=== PATIENT | male | born 2000 | race Caucasian/White ===

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

== ENCOUNTER 2019-03-24 01:10 | Emergency (ER) | payer OTHER ==
[~2019-03-24] VITALS: Ht 175.2 cm; Wt 68.0 kg
[2019-03-24 01:11] VITALS: BP 106/68
[2019-03-24] MEDS ORDERED: AMOXICILLIN500 M2 PO (02:10)
== END 2019-03-24 02:17 | disposition home or self-care (01) ==
LOC: ED 01:10
DX: H66.93 Otitis media, unspecified, bilateral (principal)

== ENCOUNTER 2019-04-05 22:47 | Emergency (ER) | payer OTHER ==
[~2019-04-05] VITALS: Ht 177.8 cm; Wt 70.3 kg
[~2019-04-05 22:47] MED LIST changes: +AMOXICILLIN500 M2 PO
[2019-04-05 22:51] VITALS: BP 102/68
[2019-04-06] MEDS ORDERED: FLONASE ALLERG9.9 ML NAS (01:14)
[2019-04-06] MEDS ORDERED: ZYRTEC10 MG PO (01:14)
== END 2019-04-06 01:27 | disposition home or self-care (01) ==
LOC: ED 22:47
DX: J06.9 Acute upper respiratory infection, unspecified (principal); Z79.2 Long term (current) use of antibiotics

== ENCOUNTER 2019-11-18 21:25 | Emergency (ER) | payer OTHER ==
[~2019-11-18 21:25] MED LIST changes: +FLONASE ALLERG9.9 ML NAS; +ZYRTEC10 MG PO
[2019-11-18 21:39] VITALS: BP 111/71
[2019-11-18] MEDS ORDERED: SEPTDS PO (22:35)
[2019-11-18] MEDS ORDERED: CEPHALEXIN500 M1 PO (22:35)
== END 2019-11-18 22:45 | disposition home or self-care (01) ==
LOC: ED 21:25
DX: L05.91 Pilonidal cyst without abscess (principal)

== ENCOUNTER 2020-02-23 23:50 | Emergency (ER) | payer OTHER ==
[~2020-02-23] VITALS: Ht 177.8 cm; Wt 68.0 kg
[~2020-02-23 23:50] MED LIST changes: +CEPHALEXIN500 M1 PO; +SEPTDS PO
[2020-02-24 00:19] LABS: BASO % 0.4 % (0.0-1.0); EOS # 0.1 10*3/uL (0.0-0.4); EOS % 0.9 % (1.0-4.0); LYMPH # 2.2 10*3/uL (1.3-4.4); LYMPH % 28.6 % (27.0-41.0); MEAN CORPUSCULAR HGB 28.6 pg (27.0-31.0); MEAN CORPUSCULAR HGB CONC 34.4 g/dl (33.0-37.0); MEAN PLATELET VOLUME 9.9 fl (9.6-12.3); MONO # 0.6 10*3/uL (0.1-1.0); MONO % 7.4 % (3.0-9.0); NEUT # 4.9 10*3/uL (2.3-7.9); NEUT % 62.4 % (47.0-73.0); PLATELET COUNT AUTOMATED 250 10*3/uL (130-400); RED BLOOD COUNT 5.18 10*6/uL (4.50-5.90); RED CELL DISTRI WIDTH 12.5 % (0-14.5); WHITE BLOOD COUNT 7.8 10*3/uL (4.8-10.8)
[2020-02-24 00:35] LABS: ALBUMIN 4.4 gm/dl (3.1-4.5); ALKALINE PHOSPHATASE 61 U/L (45-117); BUN 12 mg/dl (7-24); CHLORIDE 111 mmol/L (98-107); CREATININE 1.31 mg/dL (0.70-1.30); POTASSIUM 2.9 mmol/L (3.5-5.1); SGOT/AST 15 IU/L (3-35); SGPT/ALT 24 U/L (12-78); SODIUM 141 mmol/L (136-145)
[2020-02-24 00:37] LABS: TROPONIN I < 0.015 ng/ml (<0.045)
[2020-02-24] MEDS ORDERED: POTASSIUM CHLO10 ME5 PO (00:57)
[2020-02-24 01:05] VITALS: BP 117/84
== END 2020-02-24 01:29 | disposition home or self-care (01) ==
LOC: ED 23:50
PROVIDERS: Emergency Medicine
DX: F45.8 Other somatoform disorders (principal); E87.6 Hypokalemia; Z79.899 Other long term (current) drug therapy

== ENCOUNTER 2020-08-01 11:53 | Emergency (ER) | payer OTHER ==
[~2020-08-01] VITALS: Wt 79.4 kg
[~2020-08-01 11:53] MED LIST changes: -OMEPRAZOLE40 MG PO; -ZITHROMAX250 MG PO
[2020-08-01 12:04] VITALS: BP 142/78
[2020-08-01] MEDS ORDERED: ZITHROMAX250 MG PO (12:25)
== END 2020-08-01 12:34 | disposition home or self-care (01) ==
LOC: ED 11:53
DX: J32.9 Chronic sinusitis, unspecified (principal); Z79.899 Other long term (current) drug therapy

== ENCOUNTER → 2020-08-01 | Outpatient (CLI) | payer OTHER ==
[~2020-08-01] MED LIST changes: +OMEPRAZOLE40 MG PO; +POTASSIUM CHLO10 ME5 PO; +ZITHROMAX250 MG PO
== END | disposition home or self-care (01) ==
LOC: COVID19 14:29
PROVIDERS: ATTEND Internal Medicine
DX: Z20.822 Contact with and (suspected) exposure to COVID-19 (principal)

== ENCOUNTER 2020-10-04 06:19 | Emergency (ER) | payer SELFPAY ==
[~2020-10-04] VITALS: Ht 182.8 cm; Wt 77.1 kg
[~2020-10-04 06:19] MED LIST changes: +ZITHROMAX250 MG PO
[2020-10-04 06:25] VITALS: BP 136/84
[2020-10-04 06:56] LABS: BASO % 0.3 % (0.0-1.0); EOS # 0.1 10*3/uL (0.0-0.4); EOS % 1.9 % (1.0-4.0); HEMATOCRIT 43.9 % (42.0-52.0); LYMPH # 2.3 10*3/uL (1.3-4.4); LYMPH % 37.3 % (27.0-41.0); MEAN CELL VOLUME 84.9 fl (80.0-94.0); MEAN CORPUSCULAR HGB 29.4 pg (27.0-31.0); MEAN CORPUSCULAR HGB CONC 34.6 g/dl (33.0-37.0); MEAN PLATELET VOLUME 10.2 fl (9.6-12.3); MONO # 0.6 10*3/uL (0.1-1.0); MONO % 9.9 % (3.0-9.0); NEUT # 3.2 10*3/uL (2.3-7.9); NEUT % 50.4 % (47.0-73.0); PLATELET COUNT AUTOMATED 229 10*3/uL (130-400); RED BLOOD COUNT 5.17 10*6/uL (4.50-5.90); RED CELL DISTRI WIDTH 12.6 % (0-14.5); WHITE BLOOD COUNT 6.3 10*3/uL (4.8-10.8)
[2020-10-04 07:12] LABS: ALBUMIN 4.4 gm/dl (3.1-4.5); ALKALINE PHOSPHATASE 70 U/L (45-117); BUN 11 mg/dl (7-24); CHLORIDE 108 mmol/L (98-107); CREATININE 1.19 mg/dL (0.70-1.30); POTASSIUM 3.5 mmol/L (3.5-5.1); SGOT/AST 14 IU/L (3-35); SGPT/ALT 33 U/L (12-78); SODIUM 140 mmol/L (136-145); TOTAL PROTEIN 7.9 gm/dL (6.4-8.2)
[2020-10-04 07:15] LABS: BILIRUBIN Negative (Negative); BLOOD Negative (Negative); CLARITY Clear (Clear); COLOR Yellow (Yellow); GLUCOSE Negative (Negative); KETONE Negative (Negative); LEUKO ESTERASE Negative (Negative); NITRITE Negative (Negative); UROBILINOGEN 0.2 E.U./dl (0.0-1.0)
[2020-10-04 07:23] LABS: URINE AMPHETAMINES < 1000 (1000ng/ml); URINE BARBITURATES < 200 (200ng/ml); URINE BENZODIAZEPINES < 200 (200ng/ml); URINE CANNABINOIDS (THC) < 50 (50ng/ml); URINE COCAINE < 300 (300ng/ml); URINE METHADONE < 300 (300ng/ml); URINE OPIATES < 300 (300ng/ml)
[2020-10-04 07:24] LABS: URINE PHENCYCLIDINE < 25 (25ng/ml)
[2020-10-04 07:27] LABS: RBC 0-2 rbc/hpf (0-2)
[2020-10-04] MEDS ORDERED: OMEPRAZOLE40 MG PO (10:12)
== END 2020-10-04 10:19 | disposition home or self-care (01) ==
LOC: ED 06:19
PROVIDERS: Internal Medicine
DX: K21.9 Gastro-esophageal reflux disease without esophagitis (principal); Z79.899 Other long term (current) drug therapy; Z20.822 Contact with and (suspected) exposure to COVID-19

== ENCOUNTER → 2021-03-18 | Outpatient (CLI) | payer OTHER ==
[~2021-03-18] MED LIST changes: +OMEPRAZOLE40 MG PO
== END | disposition home or self-care (01) ==
LOC: COVID19 15:37
PROVIDERS: ATTEND Internal Medicine
DX: U07.1 COVID-19 (principal)

== ENCOUNTER → 2021-05-07 | Outpatient (CLI) | payer OTHER | END | disposition home or self-care (01) | LOC: COVID19 15:34 | PROVIDERS: ATTEND Internal Medicine | DX: Z11.52 Encounter for screening for COVID-19 (principal) ==

== ENCOUNTER 2023-02-24 09:53 | Emergency (ER) | payer OTHER ==
[~2023-02-24] VITALS: Ht 177.8 cm; Wt 81.6 kg
[2023-02-24 10:02] VITALS: BP 111/74
[2023-02-24] MEDS ORDERED: CEPHALEXIN500 M1 PO (10:50)
== END 2023-02-24 10:53 | disposition home or self-care (01) ==
LOC: ED 09:53
DX: S61.012A Laceration without foreign body of left thumb without damage to nail, initial encounter (principal); F17.290 Nicotine dependence, other tobacco product, uncomplicated; W27.0XXA Contact with workbench tool, initial encounter; Y93.89 Activity, other specified; Y92.89 Other specified places as the place of occurrence of the external cause; Y99.0 Civilian activity done for income or pay

== ENCOUNTER 2024-02-22 13:47 | Emergency (ER) | payer SELFPAY ==
[~2024-02-22] VITALS: Ht 177.8 cm; Wt 72.6 kg
[2024-02-22 13:59] VITALS: BP 115/73
[2024-02-22] MEDS ORDERED: LORazepam 1 MG TAB PO ONE (14:25)
[2024-02-22 14:37] LABS: BASO % 0.2 % (0.0-1.0); EOS # 0.1 10*3/uL (0.0-0.4); HEMATOCRIT 44.1 % (42.0-52.0); LYMPH % 40.4 % (27.0-41.0); MEAN CELL VOLUME 86.5 fl (80.0-94.0); MEAN CORPUSCULAR HGB 29.2 pg (27.0-31.0); MEAN CORPUSCULAR HGB CONC 33.8 g/dl (33.0-37.0); MEAN PLATELET VOLUME 9.9 fl (9.6-12.3); MONO # 0.4 10*3/uL (0.1-1.0); MONO % 8.4 % (3.0-9.0); NEUT # 2.5 10*3/uL (2.3-7.9); PLATELET COUNT AUTOMATED 194 10*3/uL (130-400); RED CELL DISTRI WIDTH 13.2 % (0-14.5)
[2024-02-22 15:02] LABS: BUN 9 mg/dl (9-23); CHLORIDE 106 mmol/L (98-107); POTASSIUM 3.6 mmol/L (3.4-5.1)
[2024-02-22] MEDS ORDERED: AVPAK AZITHROM250 MG PO (16:19)
[2024-02-22] MEDS ORDERED: MEDROL DOSEPAK4 MG PO (16:19)
== END 2024-02-22 16:28 | disposition home or self-care (01) ==
LOC: ED 13:47
PROVIDERS: Internal Medicine
DX: B34.9 Viral infection, unspecified (principal); Z20.822 Contact with and (suspected) exposure to COVID-19; R11.0 Nausea; F45.8 Other somatoform disorders

== ENCOUNTER 2024-03-15 12:46 | Emergency (ER) | payer SELFPAY ==
[~2024-03-15] VITALS: Wt 72.6 kg
[~2024-03-15 12:46] MED LIST changes: +AVPAK AZITHROM250 MG PO; +MEDROL DOSEPAK4 MG PO
[2024-03-15 12:56] VITALS: BP 108/70
[2024-03-15 13:28] LABS: BILIRUBIN Negative (Negative); BLOOD Negative (Negative); CLARITY Clear (Clear); COLOR Dark Yellow (Yellow); GLUCOSE Negative (Negative); KETONE 1+ (Negative); LEUKO ESTERASE Trace (Negative); NITRITE Negative (Negative); SPECIFIC GRAVITY >= 1.030 (1.001-1.030)
[2024-03-15 13:49] LABS: RBC 0-2 rbc/hpf (0-2)
[2024-03-15] MEDS ORDERED: AZITHROMYCIN 250 MG TAB PO ONE (13:55)
== END 2024-03-15 14:28 | disposition home or self-care (01) ==
LOC: ED 12:46
PROVIDERS: Internal Medicine
DX: Z00.00 Encounter for general adult medical examination without abnormal findings (principal); Z79.899 Other long term (current) drug therapy

== ENCOUNTER 2024-06-23 16:58 | Emergency (ER) | payer OTHER ==
[~2024-06-23] VITALS: Wt 81.6 kg
[~2024-06-23 16:58] MED LIST changes: +VIBRAMYCIN100 MG PO
[2024-06-23 17:11] VITALS: BP 104/69
[2024-06-23] MEDS ORDERED: VIBRAMYCIN100 MG PO (17:18)
[2024-06-23 17:33] LABS: BILIRUBIN Negative (Negative); BLOOD Negative (Negative); CLARITY Clear (Clear); COLOR Yellow (Yellow); GLUCOSE Negative (Negative); KETONE Negative (Negative); LEUKO ESTERASE 1+ (Negative); NITRITE Negative (Negative); PH 6.5 (4.5-8.0); SPECIFIC GRAVITY 1.025 (1.001-1.030)
[2024-06-23 17:41] LABS: BACTERIA 1+; RBC 0-2 rbc/hpf (0-2); WBC 21-30 wbc/hpf (0-5)
== END 2024-06-23 18:25 | disposition home or self-care (01) ==
LOC: ED 16:58
PROVIDERS: Physician Assistant Medical
DX: N39.0 Urinary tract infection, site not specified (principal); Z20.2 Contact with and (suspected) exposure to infections with a predominantly sexual mode of transmission

== ENCOUNTER 2024-08-02 11:40 | Emergency (ER) | payer OTHER ==
[~2024-08-02] VITALS: Ht 180.3 cm; Wt 81.6 kg
[2024-08-02 11:56] VITALS: BP 111/85
[2024-08-02] MEDS ORDERED: AVPAK AZITHROM250 M1 PO (14:22)
[2024-08-02] MEDS ORDERED: AZITHROMYCIN 250 MG TAB PO ONE (14:25)
== END 2024-08-02 14:25 | disposition home or self-care (01) ==
LOC: ED 11:40
DX: J06.9 Acute upper respiratory infection, unspecified (principal); Z20.822 Contact with and (suspected) exposure to COVID-19; K21.9 Gastro-esophageal reflux disease without esophagitis; E87.6 Hypokalemia

== ENCOUNTER 2024-11-23 07:09 | Emergency (ER) | payer OTHER ==
[~2024-11-23] VITALS: Ht 180.3 cm; Wt 81.6 kg
[~2024-11-23 07:09] MED LIST changes: +AVPAK AZITHROM250 M1 PO
[2024-11-23 07:19] VITALS: BP 106/74
[2024-11-23] MEDS ORDERED: IBUPROFEN 800 MG TAB PO ONE (07:30)
[2024-11-23] MEDS ORDERED: MELOXICAM15 MG PO (07:53)
== END 2024-11-23 07:57 | disposition home or self-care (01) ==
LOC: ED 07:09
DX: S60.221A Contusion of right hand, initial encounter (principal); Z79.899 Other long term (current) drug therapy; W20.8XXA Other cause of strike by thrown, projected or falling object, initial encounter; Y93.89 Activity, other specified; Y92.89 Other specified places as the place of occurrence of the external cause; Y99.8 Other external cause status